=== PATIENT | female | born 1985 | race Caucasian/White ===

== ENCOUNTER 2018-09-06 02:28 | Inpatient (IN) | payer BC ==
[2018-09-06 02:32] VITALS: BMI 35.1
--- NOTE | 2018-09-06 03:15 | OBHP ---
Datetime: 09/06/2018 03:10 IP Adm Impression: Term, intrauterine IP Admit Plan: Initiate labor protocol Admit Comment, IP Provider: 33 y/o at 40.4 wks presented with c/o ctx. No c/o VB or LOF. + FM PMH: Deneis PSH: Denies OBH: Primigravid VE: /-2 TOCO: Ctx q 3-5 min EFM: Cat 1 Labs; Not available for review A?P: ADmit to L_D Dr Wallace IVF Labs GBS prophylaxis if needed Pelvic Type - PN: Adequate Extremities - PN: Normal Abdomen - PN: Normal Back - PN: Normal Breast - PN: Normal Lungs - PN: Normal Heart - PN: Normal Thyroid - PN: Normal Neurologic - PN: Normal HEENT - PN: Normal General - PN: Normal Presentation-Admit: Vertex FHR - Baseline A Provider: 120 Membranes, Provider: Intact Contraction Comments Provider: 3-5 Comments, ACOG Physical Exam: ABD: Soft, NT, EFW 7.5 lbs Gestation - Est Wks by US: 40.4 Pool Provider: Negative EGA AdmitDate IP: 40.4 Vital Signs Provider: Reviewed; Within Normal Limits IP Chief Complaint: Uterine contractions NICHD Variability Prov Fetus A: Moderate 6-25bpm NICHD Accel Fetus A IP Provider: 15X15 FHR Category Provider Fetus A: Category I NICHD Decel Fetus A IP Provider: None Dilatation, Provider: 3 Effacement, Provider: 80 Station, Provider: -2 Genitourinary Exam: Normal DTRs - PN: Normal
[2018-09-06] MEDS ORDERED: Lactated Ringer's 1,000 ML IV ONE (03:37)
[2018-09-06 04:10] LABS: BASO # 0.1 K/uL (0.0-0.2); BASO % 0.9 % (0.0-2.0); EOS # 0.2 K/uL (0.0-0.7); EOS % 1.2 % (0.0-4.0); HEMOGLOBIN 11.6 g/dL (11.0-16.0); LYMPH # 2.1 K/uL (1.0-4.3); LYMPH % 16.4 % (20.0-40.0); MEAN CELL VOLUME 81.8 fL (81.0-99.0); MEAN CORPUSCULAR HEMOGLOBIN 25.9 pg (27.0-31.0); MEAN CORPUSCULAR HGB CONC 31.6 g/dL (33.0-37.0); MEAN PLATELET VOLUME 8.4 fL (7.2-11.7); MONO # 0.9 K/uL (0.0-0.8); MONO % 7.1 % (0.0-10.0); NEUT # 9.7 K/uL (1.8-7.0); NEUT % 74.4 % (50.0-75.0); RBC 4.47 Mil/uL (3.80-5.20); RED CELL DISTRIBUTION WIDTH 14.8 % (11.5-14.5); WHITE BLOOD COUNT 13.1 K/uL (4.8-10.8)
[2018-09-06 04:11] LABS: SQUAMOUS EPITHIAL 4 /hpf (0-5); URINE BACTERIA OCC (<OCC); URINE BILIRUBIN NEGATIVE (NEGATIVE); URINE BLOOD 2+ (NEGATIVE); URINE CLARITY Clear (Clear); URINE COLOR Straw (YELLOW); URINE GLUCOSE (UA) NORMAL (Normal); URINE LEUKOCYTE ESTERASE 2+ Leu/uL (Negative); URINE PROTEIN NEGATIVE (NEGATIVE); URINE UROBILINOGEN NORMAL mg/dL (0.2-1.0)
[2018-09-06 04:19] LABS: BLOOD UREA NITROGEN 17 mg/dL (7-17); GFR NON-AFRICAN AMERICAN > 60
[2018-09-06 04:53] LABS: HEPATITIS B SURFACE AG Negative (NEGATIVE)
[2018-09-06] MEDS ORDERED: Nalbuphine HCL 10 mg/ml Ampule IVP ONE (04:54)
[2018-09-06] MEDS ORDERED: Bupivacaine HCl/FentaNYL Cit 100 ML EPI ONE (09:07)
[2018-09-06] MEDS ORDERED: Lidocaine 2% MPF (5 ml) Inj ONE (11:23)
[2018-09-06] MEDS ORDERED: Oxycodone/Acetaminophen 5/325 mg Tab PO PRN (12:45)
[2018-09-06] MEDS ORDERED: Benzocaine/Menthol 20%-0.5% Topical Spray (60 ml) TOP PRN (12:45)
--- NOTE | 2018-09-07 02:12 | OBDS ---
DELIVERY PERSONNEL Delivery Doctor: Ambar Wallace MD Mechanical Handyman: Taina Olivo RN Resident: Tracie MCKENZIE MATERNAL INFORMATION Delivery Anesthesia: Epidural Medications in Delivery: Pitocin 20 Units Estimated Blood Loss (ml): 250 Placenta Cultured: No Maternal Complications: None RN Comments: IUP 40.4 live baby boy born @ 1221. Apgars 9/9 .Nasal flaring and grunting noted post d elivery. Dr Watkins called to delivery room. Pulse ox applied. Blow by oxygen given. Baby transferre d to nursery for observation. Provider Comments: pt fully dilated and pushing. Atruamtic, spontanouus deliveyr of head, no nuchal cord. atrumatic, spontaneous delivery of anteiro followed by posterior shoulder followed by delivery of the body. both oral and nasal passages of annel baby were bulb suctioned. Umbilical cord was clamped and cut. baby was handed to mother on abdomen with rn assistnace. cord blood was collected adn sent x 2. Spontanoeu delivery of intact placent with membranes. fundus firm, second degree perineal lacera tion noted adn repoared with 2-0 and 3-0 chormic. Good hemostasis, no complications. live male infant agpars 9,9 ebl 250ml LABOR SUMMARY EDC: 09/02/2018 00:00 EDC: 09/02/2018 00:00 No. Babies in Womb: 1 Attempted: No Labor Anesthesia: Epidural LABOR INFORMATION Reason for Induction: Not Applicable Onset of Labor: 09/06/2018 03:00 Complete Dilatation: 09/06/2018 11:00 Oxytocin: N/A Group B Beta Strep: Negative Group B Beta Strep: Negative Steroids Given: None Reason Steroids Not Administered: Not Applicable MEMBRANES Membranes Rupture Method: Spontaneous Membranes Rupture Method: Spontaneous Rupture of Membranes: 09/06/2018 08:45 Rupture of Membranes: 09/06/2018 08:45 Length of Rupture (hrs): 3.60 Length of Rupture (hrs): 3.60 Amniotic Fluid Color: Clear Amniotic Fluid Color: Clear Amniotic Fluid Amount: Small Amniotic Fluid Amount: Small Amniotic Fluid Odor: Normal Amniotic Fluid Odor: Normal STAGES OF LABOR Stage 1 hrs: 8 Stage 1 min: 0 Stage 2 hrs: 1 Stage 2 min: 21 Stage 3 hrs: 0 Stage 3 min: 10 Total Time in Labor hrs: 9 Total Time in Labor min: 31 VAGINAL DELIVERY Episiotomy: None Laceration Extension: Second Degree Laceration Type: Perineal Laceration Repair: Yes Initial Vag Sponge Count: 10 Final Vag Sponge Count: 10 Initial Vag Sharps Count: 2 Final Vag Sharps Count: 2 Sponge Count Correct: Yes Sharps Count Correct: Yes BABY A INFORMATION Delivery Date/Time: 09/06/2018 12:21 Method of Delivery: Vaginal Born in Route : No : N/A Forceps: N/A Vacuum Extraction: N/A Shoulder Dystocia : No SHOULDER DYSTOCIA BABY A Infant Delivery Date/Time: 09/06/2018 12:21 PRESENTATION/POSITION BABY A Presentation: Cephalic Cephalic Presentation: Vertex Vertex Position: Left Occipital Anterior Breech Presentation: N/A PLACENTA INFORMATION BABY A Placenta Delivery Time : 09/06/2018 12:31 Placenta Method of Delivery: Spontaneous Placenta Status: Delivered SCORES BABY A Heart Rate 1 min: >100 bpm Resp Effort 1 min: Good Cry Reflex Irritability 1 min: Cough or Sneeze or Pulls Away Muscle Tone 1 min: Active Motion Color 1 min: Body [place], Extremities Blue SCORE 1 MIN: 9 Heart Rate 5 min: >100 bpm Resp Effort 5 min: Good Cry Reflex Irritability 5 min: Cough or Sneeze or Pulls Away Muscle Tone 5 min: Active Motion Color 5 min: Body [place], Extremities Blue SCORE 5 MIN: 9 INFANT INFORMATION BABY A Gestational Age at Delivery: 40.4 Gestational Status: Term Infant Outcome : Liveborn Condition : Stable Sex: Male IDENTIFICATION/MEDS BABY A ID Band Number: [id number] ID Band Location: Left Leg; Left Arm Sensor Applied: Yes Sensor Number: [id number] Sensor Location : Cord Clamp WEIGHT/LENGTH BABY A Birthweight (gms): 3525 Infant Weight (lb): 7 Infant Weight (oz): 12 Length Inches: 20.00 Length cms: 50.8 CORD INFORMATION BABY A No. Cord Vessels: 3 Nuchal Cord : N/A Cord Blood Taken: Yes Suction: Mouth; Nose ASSESSMENT BABY A Infant Complications: None Physical Findings at Delivery: Caput Succedaneum; Molding of the Head Respirations: Grunting; Intercostal Retractions; Nasal Flaring Jury Consultant/ALS Called : Yes Care By: Dr. Watkins
[2018-09-07 08:03] LABS: BASO % 0.2 % (0.0-2.0); EOS # 0.1 K/uL (0.0-0.7); EOS % 0.5 % (0.0-4.0); HEMOGLOBIN 9.9 g/dL (11.0-16.0); LYMPH # 2.2 K/uL (1.0-4.3); LYMPH % 11.4 % (20.0-40.0); MEAN CELL VOLUME 81.5 fL (81.0-99.0); MEAN CORPUSCULAR HEMOGLOBIN 27.2 pg (27.0-31.0); MEAN CORPUSCULAR HGB CONC 33.4 g/dL (33.0-37.0); MEAN PLATELET VOLUME 8.4 fL (7.2-11.7); MONO # 1.2 K/uL (0.0-0.8); MONO % 6.3 % (0.0-10.0); NEUT # 15.4 K/uL (1.8-7.0); NEUT % 81.6 % (50.0-75.0); RBC 3.62 Mil/uL (3.80-5.20); RED CELL DISTRIBUTION WIDTH 15.3 % (11.5-14.5); WHITE BLOOD COUNT 18.9 K/uL (4.8-10.8)
[2018-09-07 09:30] VITALS: RESP 18
[2018-09-07] MEDS: Multiple Vitamins Tab PO SCH (09:59)
[2018-09-08 08:18] LABS: BASO # 0.1 K/uL (0.0-0.2); BASO % 0.4 % (0.0-2.0); EOS # 0.2 K/uL (0.0-0.7); EOS % 1.2 % (0.0-4.0); HEMOGLOBIN 10.8 g/dL (11.0-16.0); LYMPH # 1.9 K/uL (1.0-4.3); LYMPH % 14.4 % (20.0-40.0); MEAN CELL VOLUME 81.7 fL (81.0-99.0); MEAN CORPUSCULAR HEMOGLOBIN 27.2 pg (27.0-31.0); MEAN CORPUSCULAR HGB CONC 33.3 g/dL (33.0-37.0); MEAN PLATELET VOLUME 8.1 fL (7.2-11.7); MONO % 7.2 % (0.0-10.0); NEUT # 10.1 K/uL (1.8-7.0); NEUT % 76.8 % (50.0-75.0); NRBC % 0.1 % (0.0-2.0); RBC 3.96 Mil/uL (3.80-5.20); RED CELL DISTRIBUTION WIDTH 15.4 % (11.5-14.5); WHITE BLOOD COUNT 13.2 K/uL (4.8-10.8)
[2018-09-08] MEDS: Multiple Vitamins Tab PO SCH (10:14)
--- NOTE | 2018-09-08 12:23 | OBPPN ---
Datetime: 09/08/2018 12:21 PP Pain Prov: Within normal limits PP Nausea Prov: Denies PP Flatus Prov: Yes PP BM Prov: No PP Breasts Prov: Normal PP Heart Prov: Normal PP Lungs Prov: Normal PP Abdomen/Uterus Prov: Normal PP Lochia Prov: Normal PP Vulva/Perineum Prov: Normal PP CVA Tenderness Prov: Normal PP Extremities Prov: Normal PP C/S Incision Prov: Not Applicable PP Progress Prov: Normal PP Impression Prov: Normal progression PP Plan Prov: Discharge PP Progress Note Prov: pt seen and emained vss pe see above ap s/ pnsvd ppd #2 doign well dc home rto 6 weeks IP PP Procedures: None Vital Signs Provider PP: Reviewed; Within Normal Limits
--- NOTE | 2018-09-08 12:24 | OBDCSUM ---
Datetime: 09/08/2018 12:22 Discharged to, Provider: Home Follow up at, Provider: Dr Wallace Disch Instr Activity: Normal activity Disch Instr Diet: Regular Discharge Instructions, Provider: Routine instructions given Discharge Diagnosis, Provider: Term Delivered Discharge Time: 09/08/2018 12:22 Follow up in weeks, Provider: 6 weeks Disch Referrals: None Contraception discussed, Prov: Yes Disch Activity Restrictions: No sexual activity; Nothing in vagina - [place], tampons, douche Discharge Comment, Provider: precautiong iven Contraception after Delivery: Not Planning to Use
[2018-09-08 22:48] VITALS: BP 121/63; PULSE 80; TEMP 97; O2SAT 98
== END 2018-09-08 17:00 | disposition home or self-care (01) | DRG 807 ==
LOC: C.EROB 02:28 → C.4D 03:01 → C.4M 15:59
PROVIDERS: ADMIT Obstetrics & Gynecology; ATTEND Obstetrics & Gynecology
PROC: 10E0XZZ Delivery of Products of Conception, External Approach (ICD-10-PCS; principal; 2018-09-06)
PROC: 0KQM0ZZ Repair Perineum Muscle, Open Approach (ICD-10-PCS; 2018-09-06)
DX: O70.1 Second degree perineal laceration during delivery (principal); Z37.0 Single live birth; Z3A.40 40 weeks gestation of pregnancy